=== PATIENT | female | born 1960 | race Caucasian/White ===

== ENCOUNTER → 2018-09-08 10:03 | Outpatient (CLI) | payer MEDICAID, SELFPAY ==
--- NOTE | 2018-09-08 10:05 | RAD_ITS ---
STUDY: X-RAY - CERVICAL SPINE REASON FOR EXAM: Female, 58 years old. Left pain. History of the left shoulder surgery. TECHNIQUE: 5 view(s) of the cervical spine were obtained. COMPARISON: None FINDINGS: There is anterior discectomy and fusion at C5-C6 and C6-C7 with the possibility of secured by a plate and screws through C5-C6 and C7. The hardware is in good position. There is overall normal alignment and curvature of the cervical spine with no acute fractures or dislocations. The prevertebral soft tissues are normal. All the intervertebral foramina are patent . RAD/Cerv Spine 4 or 5 Views IMPRESSION: Anterior discectomy and fusion in the lower cervical spine. No acute fractures. All the intervertebral foramina are patent Electronically Signed: Jeramie Chatterjee MD at 0:26 EDT Tel , Service support ,
--- NOTE | 2018-09-08 14:48 | NEURO ---
NCS and/or EMG Patient Report Ordering Doctor: Librado Jo DATE OF SERVICE: 09/08/18 Liz Colin is a 58-year-old female presents for electrodiagnostic testing of the left upper limb. She reports numbness and tingling in the left arm. Electrodiagnostic findings: The left median motor nerve demonstrates normal distal latency amplitude and conduction velocity. Normal left ulnar motor response. Normal left median and ulnar F wave. Normal left sided median, ulnar and radial responses. Needle EMG testing shows no evidence of denervation with normal motor unit action potentials. Electrodiagnostic impression: This is a normal electrodiagnostic study of the left upper limb. There is no electrodiagnostic evidence for peripheral neuropathy or cervical radiculopathy. If there are any further questions, please not hesitate to contact me
--- NOTE | 2018-09-08 14:51 | NEURO_ITS ---
NCS and/or EMG Patient Report Ordering Doctor: Librado Jo DATE OF SERVICE: 09/08/18 Liz Colin is a 58-year-old female presents for electrodiagnostic testing of the left upper limb. She reports numbness and tingling in the left arm. Electrodiagnostic findings: The left median motor nerve demonstrates normal di stal latency amplitude and conduction velocity. Normal left ulnar motor response. Normal left median and ulnar F wave. Normal left sided median, ulnar and radial responses. Needle EMG testing shows no evidence of denervation with normal motor unit action potentials. Electrodiagnostic impression: This is a normal electrodiagnostic study of the left upper limb. There is no electrodiagnostic evidence for peripheral neuropathy or cervical radiculopathy. If there are any further questions, please not hesitate to contact me
== END ==
PROVIDERS: Family Provider Preventive Medicine Occupational Medicine; PCP Preventive Medicine Occupational Medicine; Referring Provider Surgery; Visit Provider Surgery
DX: G56.22 Lesion of ulnar nerve, left upper limb (principal); F17.200 Nicotine dependence, unspecified, uncomplicated
CPT/HCPCS: 72050; 95886; 95910

== ENCOUNTER 2018-12-21 07:33 | Day surgery (SDC) | payer MEDICAID, SELFPAY ==
[2018-12-09 15:15] VITALS: BMI 36.8
[2018-12-21] VITALS (8 sets, daily range): BP systolic 111–139; BP diastolic 64–83; PULSE 54–68; RESP 14–18; TEMP 35.9–36.3; O2SAT 90–99; BMI 37.6
--- NOTE | 2018-12-21 09:15 | LES_PTH ---
PATIENT: YASMEEN DIAZ LOC: [facility] [place] U#:[id number] AGE/SX: 58/F ROOM: RE12/21/[address]: Dr. Librado Jo MD : 1960 BED: DIS: 12/21/2018 SPEC #: [id number] RECD: 12/21/18 14:34 STATUS: ITA CATY #: [id number] SHAUNNA: 12/21/18 09:[address]: Librado Jo DEPT: SURGICAL PATHOLOGY RECD BY: Imtiaz Chapman ENTERED: 12/21/18 14:35 SP TYPE: Lesion OTHR DR: Dr. Federico Hawthorne, DO Tissues: A - Skin of abdomen, NOS B - Skin of arm C - Skin of arm Procedures: Surgery Specimen Level III Surgery Specimen Level IV HEADER OPERATION: Excision soft tissue mass x2, lower arm/I & D, excisional debridement PRE-OP DIAGNOSIS: Localized swelling, mass and lump left upper limb; left abdominal wall cellulitis and wall mass TISSUE SUBMITTED: A - Left abdominal wall infected lesion, suture at 12 o'clock, B - Soft tissue mass left medial antecubital, C - Soft tissue mass left lateral antecubital MICROSCOPIC DIAGNOSIS A. Left abdominal wall, skin and soft tissue, excision: Epidermal inclusion cyst with associated fibrosis and mild chronic inflammation. B. Soft tissue mass of left medial antecubital region, excision: Mature adipose tissue consistent with lipoma. C. Soft tissue mass of left lateral antecubital region, excision: Mature adipose tissue consistent with lipoma. AM:delvis 12/22/18 MICROSCOPIC DESCRIPTION Slides are reviewed. GROSS DESCRIPTION A - Received in fixative is one container labeled with the patient's name and designated left abdominal infected lesion. The specimen consists of an ellipse of hall skin measuring 3 x 1 cm. Attached to this is an irregular fragment of yellow fatty tissue measuring 3.5 x 3 x 1.2 cm. A suture is present along one edge of the skin ellipse. This edge and corresponding half of the specimen is inked in black ink. The opposite half is inked in blue ink. Serial sections do not reveal mass lesions. Computer Numeric Control Setter sections are submitted in one cassette. B - Received in fixative is one container labeled with the patient's name and designated soft tissue left medial antecubital. The specimen consists of multiple irregular fragments of hall-yellow fibrofatty tissue that in aggregate measure 5 x 3.5 x 1 cm. Sections reveal homogenous yellow cut surfaces without areas of myxoid change, hemorrhage or cyst formation. Computer Numeric Control Setter sections are submitted in one cassette. C - Received in fixative is one container labeled with the patient's name and designated soft tissue mass left lateral antecubital. The specimen consists of multiple irregular fragments of hall-yellow fibrofatty tissue that in aggregate measure 8 x 4.5 x 1 cm. Sections reveal homogenous yellow cut surfaces without areas of myxoid change, hemorrhage or cyst formation. Computer Numeric Control Setter sections are submitted in one cassette. / AM:delvis 12/21/18 TC:5 CPT: 66390, 34375 x2
[2018-12-21] MEDS: Mupirocin Ointment 22gm Tube 1 APPLIC (11:46)
--- NOTE | 2018-12-21 12:01 | PCM.IMDPSTOP ---
Immediate Post-Op Note Date of Procedure: 12/21/18 Primary Surgeon/Physician: Librado Jo MD commercial energy rater: None Pre-Operative Diagnosis: 1. 6 cm recurrent soft tissue mass left antecubital area, medially. 2. 6 cm soft tissue mass left antecubital area, laterally. 3. 1.5 cm infected soft tissue mass left abdominal wall. 4. Personal history of skin cancer. 5. Smoker. Post-Operative Diagnosis: Same. Surgery/Procedure Performed:: 1. Excision 6 cm recurrent soft tissue mass left antecubital area, medially, with 4 cm layered closure. 2. Excision 6 cm soft tissue mass left antecubital area, laterally, with 4 cm layered closure. 3. Excision 1.5 cm infected soft tissue mass left abdominal wall with 6 cm layered closure. Description of Surgical Findings:: 58 year old woman presents for evaluation for TBSE. She has noted a soft tissue mass in her left antecubital area in an area of previous excision medially and has developed a soft tissue mass in her left antecubital area laterally. She denies any pain in her left elbow. She also has a lesion on her dorsal ulnar aspect mid left forearm that we have been observing. The patient has not noticed any changes in that lesion recently. After her left shoulder surgery she had some numbness afterward. NCV and EMG study done on 09/08/18 was negative. Cervical xray showed anterior discectomy and fusion of lower cervical spine. There is normal alignment and curvature and intervertebral foramina are patent. MRI and CT scans were ordered and were denied by her insurance carrier. She is also concerned about a recently infected soft tissue mass left abdominal wall that has increased in size with increasing redness and swelling. She states it has recently drained on its own. It still is red and feels sore. She denies any fever. Today the patient underwent excision 6 cm recurrent soft tissue mass left antecubital area, medially, with 4 cm layered closure and excision 6 cm soft tissue mass left antecubital area, laterally, with 4 cm layered closure and excision 1.5 cm infected soft tissue mass left abdominal wall with 6 cm layered closure. I used Moises absorbable hemostat. Reference Number - [id number]. Lot Number - [id number]. Expiration - July 27, 2023. Estimated Blood Loss: 10 ml. Specimen's removed: 1. Recurrent soft tissue mass left antecubital area, medially, to Pathology. 2. Soft tissue mass left antecubital area, laterally, to Pathology. 3. Infected soft tissue mass left abdominal wall to Pathology and Microbiology. Drains: None. Type of Anesthesia:: General - Admit VTE Documentation VTE Present on Admission: No VTE Mechan Device Prophylaxis: SCD's VTE Pharm Prophylaxis ordered?: No
--- NOTE | 2018-12-21 12:16 | DCINST_ITS ---
You will use the following diet at home:: No restrictions Discharge Activity: May not drive while taking narcotic pain medications., May Shower - in two days., - - elevate left arm. no heavy lifting left arm. May shower in (days): 2 - reapply maurice wrap left arm after showering. May resume sexual activity in: No Restrictions Weight Bearing Status: Weight bearing as tolerated Lifting Restrictions: 20 lbs. Keep extremity elevated above heart level: Left Arm Call your doctor if your incision/area has: Continuous Slow Oozing, Sudden Increased Bleeding, Increased Pain/ Swelling, Increased Redness, Foul Smelling Discharge, Swelling at the incision site Call your doctor if you observe: Fever of 101 or Higher, Coldness, Increased Pain, Shortness of breath, Chest pain, Calf discomfort, Uncontrolled pain Suture Line Care: - - after dressing removed in two days, apply antibiotic ointment to suture line daily. Remove Dressing in (days):: 2 - reapply maurice wrap left arm after showering. Cleanse incision/area with: - - may get incisions wet in the shower in two days. Allergies/Adverse Reactions: Allergies doxycycline Allergy (Severe, Verified 12/20/18 08:21) DIZZINESS AND FACE NUMBNESS dicyclomine HCl [From Bentyl] Allergy (Verified 12/20/18 08:21) Swelling FACIAL NUMBNESS, LIP SWELLING Penicillins Allergy (Verified 12/20/18 08:21) Rash adhesive Adverse Reaction (Verified 12/20/18 08:21) Rash clarithromycin [From Biaxin] Adverse Reaction (Verified 12/20/18 08:21) Nausea/Vom/Diarrhea diazepam [From Valium] Adverse Reaction (Verified 12/20/18 08:21) Other CRIES FOR WEEKS levofloxacin [From Levaquin] Adverse Reaction (Verified 12/20/18 08:21) Nausea/Vom/Diarrhea prednisone Adverse Reaction (Verified 12/20/18 08:21) Other MOOD CHANGES venlafaxine HCl [From Effexor] Adverse Reaction (Verified 12/20/18 08:21) Nausea/Vom/Diarrhea PLASTIC TAPE Adverse Reaction (Uncoded 12/09/18 15:35) Rash Medications to take at Discharge Estradiol 1 mg PO DAILY 11/21/13 Omeprazole 40 mg PO DAILY 11/21/13 Atenolol [Tenormin (beta scout)] 25 mg PO DAILY 04/20/14 Triamterene 75MG/Hctz 50MG [Maxzide] 1 tablet PO DAILY 07/26/14 Sertraline HCl [Zoloft] 50 mg PO DAILY 03/28/15 Tizanidine HCl 4 mg PO Q6H PRN 09/05/16 Albuterol Inhaler [Ventolin Hfa] 1 - 2 puff INHALATION Q4H PRN PRN 03/20/17 budesonide-formoterol HFA 80 mcg-4.5 mcg/actuation aerosol inhaler 2 puff INHALATION BID 03/16/18 atorvastatin 10 mg tablet 10 mg PO QDAY 04/15/18 umeclidinium 62.5 mcg/actuation blister powder for inhalation 1 inh INHALATION DAILY 12/09/18 Ropinirole HCl [Requip] 0.5 mg PO QHS 12/20/18 Clindamycin HCl [Cleocin HCl] 300 mg PO TID #21 cap 12/21/18 Lactobacillus Acidophilus/Fos [Acidophilus Probiotic Tablet] 1 ea PO BID #20 tab 12/21/18 Oxycodone HCl/Acetaminophen [Percocet 5-325] 1 - 2 tab PO 4X/DAY PRN PRN 7 Days #50 tab 12/21/18 The following prescriptions were given: Oxycodone HCl/Acetaminophen [Percocet 5-325] 1 - 2 tab PO 4X/DAY PRN PRN 7 Days #50 tab PRN Reason: Pain Lactobacillus Acidophilus/Fos [Acidophilus Probiotic Tablet] 1 ea PO BID #20 tab Clindamycin HCl [Cleocin HCl] 300 mg PO TID #21 cap Primary Care Physician: Federico Hawthorne DO [Primary Care Provider] - Test Results: Test results from this visit will be discussed in further detail at your follow- up appointment, if applicable. Please Follow Up With: Librado Jo MD When: one week. call [phone] for appt. Proposed Discharge Date: 12/21/18
--- NOTE | 2018-12-21 19:16 | PCM.OPRPT ---
Report of Operation Date of Procedure: 12/21/18 Pre-Operative Diagnosis: 1. 6 cm recurrent soft tissue mass left antecubital area, medially. 2. 6 cm soft tissue mass left antecubital area, laterally. 3. 1.5 cm infected soft tissue mass left abdominal wall. 4. Personal history of skin cancer. 5. Smoker. Post-Operative Diagnosis: Same. Surgery/Procedure Performed:: 1. Excision 6 cm recurrent soft tissue mass left antecubital area, medially, with 4 cm layered closure. 2. Excision 6 cm soft tissue mass left antecubital area, laterally, with 4 cm layered closure. 3. Excision 1.5 cm infected soft tissue mass left abdominal wall with 6 cm layered closure. Description of Surgical Findings:: 58 year old woman presents for evaluation for TBSE. She has noted a soft tissue mass in her left antecubital area in an area of previous excision medially and has developed a soft tissue mass in her left antecubital area laterally. She denies any pain in her left elbow. She also has a lesion on her dorsal ulnar aspect mid left forearm that we have been observing. The patient has not noticed any changes in that lesion recently. After her left shoulder surgery she had some numbness afterward. NCV and EMG study done on 09/08/18 was negative. Cervical xray showed anterior discectomy and fusion of lower cervical spine. There is normal alignment and curvature and intervertebral foramina are patent. MRI and CT scans were ordered and were denied by her insurance carrier. She is also concerned about a recently infected soft tissue mass left abdominal wall that has increased in size with increasing redness and swelling. She states it has recently drained on its own. It still is red and feels sore. She denies any fever. Patient was informed of the risks and complications of the procedure including alternatives to surgery. These were discussed with the patient personally. Patient voices understanding and wishes to proceed. Some of the risks and complications were included in a form from the [place] [employer]. Encouraged patient to stop smoking as it may have deleterious effects on wound healing. I used Moises absorbable hemostat. Reference Number - [id number]. Lot Number - [id number]. Expiration - July 27, 2023. fish frog or oyster farmer: None Type of Anesthesia:: General Specimen's removed: 1. Recurrent soft tissue mass left antecubital area, medially, to Pathology. 2. Soft tissue mass left antecubital area, laterally, to Pathology. 3. Infected soft tissue mass left abdominal wall to Pathology and Microbiology. Drains: None. Estimated Blood Loss (mL): 10 ml. Description of Procedure: Patient was taken to OR in supine position and was placed under general anesthesia. The left abdominal wall and left arm areas were prepped and draped in the usual fashion. SCD's were placed for DVT prophylaxis. Perioperative antibiotics were given intravenously. Using xylocaine with epinephrine, the lesion left abdominal wall and the soft tissue masses left arm were infiltrated. A tourniquet was placed on the left arm to be used if necessary. After waiting 5 minutes for the anesthetic to take effect, I made a horizontal elliptical incision around the infected soft tissue mass with a 2 mm margin in all directions thus making it a 1.9 cm excision and a 6 cm layered closure. Dissection was carried down into the subcutaneous tissue. Some fat necrosis was seen. No pus noted today. A suture was placed at the 12 oclock position for pathology orientation. The lesion was sent to Pathology for analysis to rule out carcinoma. Some of the tissue was also sent to Microbiology for culture. A positive culture will necessitate antibiotic therapy. Hemostasis was obtained with electrocautery. The wound was irrigated with saline. I sprayed Moises absorbable hemostat into the wound to minimize seroma formation. The wound was then closed in a layered fashion with 2-0 Vicryl interrupted sutures and 3-0 Monocryl interrupted sutures for the deep dermis and subcutaneous tissue. The skin was approximated with 4-0 Prolene simple interrupted sutures. Antibiotic ointment was applied to the suture line followed by a gauze dressing. I then made oblique incisions over the soft tissue masses left volar distal arm both medially and laterally. The incision medially was through the previous scarring. Dissection was carried into the subcutaneous tissue. Some scar tissue seen was also excised with the soft tissue mass. The mass was dissected off the underlying muscle. The mass was well encapsulated and was clinically consistent with a lipoma. I then made an oblique incision laterally over the mass. Dissection was carried into the subcutaneous tissue. The mass was dissected off the underlying muscle. The mass was well encapsulated and was clinically consistent with a lipoma. Both soft tissue masses were sent to Pathology separately for analysis to rule out carcinoma. Hemostasis obtained with electrocautery. Since the masses were not deep to the muscle, I was able to excise these soft tissue masses without using the tourniquet. The wounds were irrigated with saline. I then sprayed Moises absorbable hemostat into the wounds to minimize seroma formation. The wounds were then closed in a layered fashion with 3-0 Monocryl interrupted sutures for the deep dermis and subcutaneous tissue. The skin was approximated with 5-0 Prolene simple interrupted sutures. Both incisions were 4 cm in length. Antibiotic ointment was applied to the incisions followed by gauze and a Kerlix gauze followed by a compression KANDI wrap. Patient tolerated the procedure well and was sent to PACU in satisfactory condition. Patient will be sent home on antibiotics and pain medication. She will keep her left arm elevated during the initial postop period. Patient will followup in a week for a wound check and for discussion of the pathology report and for discussion of the Microbiology report. The sutures will be removed in two weeks. Grafts/Implants Used: None. - Complications None. - Admit VTE Documentation VTE Present on Admission: No VTE Mechan Device Prophylaxis: SCD's VTE Pharm Prophylaxis ordered?: No Code Visit Surgery Charges CPT - 63843 ICD-10 - R22.32, Z85.828, F17.200 75843 R22.32, Z85.828, F17.200 57114 R22.2, L03.311, Z85.828, F17.200 97011 R22.2, L03.311, Z85.828, F17.200
--- NOTE | 2018-12-22 14:16 | OP.PCM_ITS ---
Report of Operation Date of Procedure: 12/21/18 Pre-Operative Diagnosis: 1. 6 cm recurrent soft tissue mass left antecubital area, medially. 2. 6 cm soft tissue mass left antecubital area, laterally. 3. 1.5 cm infected soft tissue mass left abdominal wall. 4. Personal history of skin cancer. 5. Smoker. Post-Operative Diagnosis: Same. Surgery/Procedure Performed:: 1. Excision 6 cm recurrent soft tissue mass left antecubital area, medially, with 4 cm layered closure. 2. Excision 6 cm soft tissue mass left antecubital area, laterally, with 4 cm layered closure. 3. Excision 1.5 cm infected soft tissue mass left abdominal wall with 6 cm layered closure. Description of Surgical Findings:: 58 year old woman presents for evaluation for TBSE. She has noted a soft tissue mass in her left antecubital area in an area of previous excision medially and has developed a soft tissue mass in her left antecubital area laterally. She denies any pain in her left elbow. She also has a lesion on her dorsal ulnar aspect mid left forearm that we have been observing. The patient has not noticed any changes in that lesion recently. After her left shoulder surgery she had some numbness afterward. NCV and EMG study done on 09/08/18 was negative. Cervical xray showed anterior discectomy and fusion of lower cervical spine. There is normal alignment and curvature and intervertebral foramina are patent. MRI and CT scans were ordered and were denied by her insurance carrier. She is also concerned about a recently infected soft tissue mass left abdominal wall that has increased in size with increasing redness and swelling. She states it has recently drained on its own. It still is red and feels sore. She denies any fever. Patient was informed of the risks and complications of the procedure including alternatives to surgery. These were discussed with the patient personally. Patient voices understanding and wishes to proceed. Some of the risks and complications were included in a form from the [employer]. Encouraged patient to stop smoking as it may have deleterious effects on wound healing. I used Moises absorbable hemostat. Reference Number - [id number]. Lot Number - [id number]. Expiration - July 27, 2023. osd clerk: None Type of Anesthesia:: General Specimen's removed: 1. Recurrent soft tissue mass left antecubital area, medially, to Pathology. 2. Soft tissue mass left antecubital area, laterally, to Pathology. 3. Infected soft tissue mass left abdominal wall to Pathology and Microbiology. Drains: None. Estimated Blood Loss (mL): 10 ml. Description of Procedure: Patient was taken to OR in supine position and was placed under general anesthesia. The left abdominal wall and left arm areas were prepped and draped in the usual fashion. SCD's were placed for DVT prophylaxis. Perioperative antibiotics were given intravenously. Using xylocaine with epinephrine, the lesion left abdominal wall and the soft tissue masses left arm were infiltrated. A tourniquet was placed on the left arm to be used if necessary. After waiting 5 minutes for the anesthetic to take effect, I made a horizontal elliptical incision around the infected soft tissue mass with a 2 mm margin in all directions thus making it a 1.9 cm excision and a 6 cm layered closure. Dissection was carried down into the subcutaneous tissue. Some fat necrosis was seen. No pus noted today. A suture was placed at the 12 oclock position for pathology orientation. The lesion was sent to Pathology for analysis to rule out carcinoma. Some of the tissue was also sent to Microbiology for culture. A positive culture will necessitate antibiotic therapy. Hemostasis was obtained with electrocautery. The wound was irrigated with saline. I sprayed Moises absorbable hemostat into the wound to minimize seroma formation. The wound was then closed in a layered fashion with 2-0 Vicryl interrupted sutures and 3-0 Monocryl interrupted sutures for the deep dermis and subcutaneous tissue. The skin was approximated with 4-0 Prolene simple interrupted sutures. Antibiotic ointment was applied to the suture line followed by a gauze dressing. I then made oblique incisions over the soft tissue masses left volar distal arm both medially and laterally. The incision medially was through the previous scarring. Dissection was carried into the subcutaneous tissue. Some scar tissue seen was also excised with the soft tissue mass. The mass was dissected off the underlying muscle. The mass was well encapsulated and was clinically consistent with a lipoma. I then made an oblique incision laterally over the mass. Dissection was carried into the subcutaneous tissue. The mass was dissected off the underlying muscle. The mass was well encapsulated and was clinically consistent with a lipoma. Both soft tissue masses were sent to Pathology separately for analysis to rule out carcinoma. Hemostasis obtained with electrocautery. Since the masses were not deep to the muscle, I was able to excise these soft tissue masses without using the tourniquet. The wounds were irrigated with saline. I then sprayed Moises absorbable hemostat into the wounds to minimize seroma formation. The wounds were then closed in a layered fashion with 3-0 Monocryl interrupted sutures for the deep dermis and subcutaneous tissue. The skin was approximated with 5-0 Prolene simple interrupted sutures. Both incisions were 4 cm in length. Antibiotic ointment was applied to the incisions followed by gauze and a Kerlix gauze followed by a compression KANDI wrap. Patient tolerated the procedure well and was sent to PACU in satisfactory condition. Patient will be sent home on antibiotics and pain medication. She will keep her left arm elevated during the initial postop period. Patient will followup in a week for a wound check and for discussion of the pathology report and for discussion of the Microbiology report. The sutures will be removed in two weeks. Grafts/Implants Used: None. - Complications None. - Admit VTE Documentation VTE Present on Admission: No VTE Mechan Device Prophylaxis: SCD's VTE Pharm Prophylaxis ordered?: No Code Visit Surgery Charges CPT - 64025 ICD-10 - R22.32, Z85.828, F17.200 42841 R22.32, Z85.828, F17.200 45329 R22.2, L03.311, Z85.828, F17.200 42800 R22.2, L03.311, Z85.828, F17.200
--- OUTSIDE RECORDS SUMMARY | 2019-02-22 07:45 | XMS RPT_ITS ---
:1960 Author Organization OHIP Care Team Providers Name Role Phone LACHELLE SHAH MD Attending Unavailable RICCI HAWTHORNE Primary Care Unavailable GENTRY SANTANA Attending Unavailable RICCI HAWTHORNE Primary Care Unavailable JODIE CHILDERS MD Attending Unavailable RICCI HAWTHORNE Primary Care Unavailable Librado Jo Attending Unavailable Librado Jo Referring Unavailable Ricci Hawthorne Primary Care Unavailable Librado Jo Attending Unavailable Ricci Hawthorne Referring Unavailable Librado Jo Attending Unavailable Ricci Hawthorne Referring Unavailable Ricci Hawthorne Primary Care Unavailable Librado Jo Attending Unavailable Ricci Hawthorne Primary Care Unavailable Librado Jo Referring Unavailable Librado Jo Attending Unavailable Librado Jo Referring Unavailable Ricci Hawthorne Primary Care Unavailable PROBLEMS PROBLEMS DATE TYPE CONDITION / CODE ATTENDING STATUS SOURCE 12/21/2018 Unknown G89.18 - Other acute Sandro Librado Active Latanya postprocedural pain [facility] / G89.18(ICD-10) Hospital Repository PROCEDURES PROCEDURES No Procedure Records FoundRESULTS RESULTS DISCHARGE INSTRUCTION Observed: 12/21/2018 Status: F Source: [place] 12:16 PM [facility] REPOSITORY [facility] Medical Records Department [address] [place] [address] Instructions for Home/Discharge Instructions 12/21/18 1212 MR#: [id number] Acct: [id number] Name: LIZ COLIN Rep #: [id number] : 1960 58 From: Librado Jo MD PCP: Ricci Hawthorne DO [place] [facility] [place] will use the following diet at home:: No restrictions Discharge Activity: May not drive while taking narcotic pain medications., May Shower - in two days., - - elevate left arm. no heavy lifting left arm. May shower in (days): 2 - reapply maurice wrap left arm after showering. May resume sexual activity in: No Restrictions Weight Bearing Status: Weight bearing as tolerated Lifting Restrictions: 20 lbs. Keep extremity elevated above heart level: Left Arm Call your doctor if your incision/area has: Continuous Slow Oozing, Sudden Increased Bleeding, Increased Pain/ Swelling, Increased Redness, Foul Smelling Discharge, Swelling at the incision site Call your doctor if you observe: Fever of 101 or Higher, Coldness, Increased Pain, Shortness of breath, Chest pain, Calf discomfort, Uncontrolled pain Suture Line Care: - - after dressing removed in two days, apply antibiotic ointment to suture line daily. Remove Dressing in (days):: 2 - reapply maurice wrap left arm after showering. Cleanse incision/area with: - - may get incisions wet in the shower in two days. Allergies/Adverse Reactions: Allergies doxycycline Allergy (Severe, Verified 12/20/18 08:21) DIZZINESS AND FACE NUMBNESS dicyclomine HCl [From Bentyl] Allergy (Verified 12/20/18 08:21) Swelling FACIAL NUMBNESS, LIP SWELLING Penicillins Allergy (Verified 12/20/18 08:21) Rash adhesive Adverse Reaction (Verified 12/20/18 08:21) Rash clarithromycin [From Biaxin] Adverse Reaction (Verified 12/20/18 08:21) Nausea/Vom/Diarrhea diazepam [From Valium] Adverse Reaction (Verified 12/20/18 08:21) Other CRIES FOR WEEKS levofloxacin [From Levaquin] Adverse Reaction (Verified 12/20/18 08:21) Nausea/Vom/Diarrhea prednisone Adverse Reaction (Verified 12/20/18 08:21) Other MOOD CHANGES venlafaxine HCl [From Effexor] Adverse Reaction (Verified 12/20/18 08:21) Nausea/Vom/Diarrhea PLASTIC TAPE Adverse Reaction (Uncoded 12/09/18 15:35) Rash Medications to take at Discharge Estradiol 1 mg PO DAILY 11/21/13 Omeprazole 40 mg PO DAILY 11/21/13 Atenolol [Tenormin (beta scout)] 25 mg PO DAILY 04/20/14 Triamterene 75MG/Hctz 50MG [Maxzide] 1 tablet PO DAILY 07/26/14 Sertraline HCl [Zoloft] 50 mg PO DAILY 03/28/15 Tizanidine HCl 4 mg PO Q6H PRN 09/05/16 Albuterol Inhaler [Ventolin Hfa] 1 - 2 puff INHALATION Q4H PRN PRN 03/20/17 budesonide-formoterol HFA 80 mcg-4.5 mcg/actuation aerosol inhaler 2 puff INHALATION BID 03/16/18 atorvastatin 10 mg tablet 10 mg PO QDAY 04/15/18 umeclidinium 62.5 mcg/actuation blister powder for inhalation 1 inh INHALATION DAILY 12/09/18 Ropinirole HCl [Requip] 0.5 mg PO QHS 12/20/18 Clindamycin HCl [Cleocin HCl] 300 mg PO TID #21 cap 12/21/18 Lactobacillus Acidophilus/Fos [Acidophilus Probiotic Tablet] 1 ea PO BID #20 tab 12/21/18 Oxycodone HCl/Acetaminophen [Percocet 5-325] 1 - 2 tab PO 4X/DAY PRN PRN 7 Days #50 tab 12/21/18 The following prescriptions were given: Oxycodone HCl/Acetaminophen [Percocet 5-325] 1 - 2 tab PO 4X/DAY PRN PRN 7 Days #50 tab PRN Reason: Pain Lactobacillus Acidophilus/Fos [Acidophilus Probiotic Tablet] 1 ea PO BID #20 tab Clindamycin HCl [Cleocin HCl] 300 mg PO TID #21 cap Primary Care Physician: Ricci Hawthorne DO [Primary Care Provider] - Test Results: Test results from this visit will be discussed in further detail at your follow-up appointment, if applicable. Please Follow Up With: Librado Jo MD When: one week. call [phone] for appt. Proposed Discharge Date: 12/21/18 12/21/18 1216 <Electronically signed by Librado Jo MD> Date Librado Jo MD CC: Ricci Hawthorne DO Signed Observed: 12/21/2018 Status: P Source: [place] CULTURE, DEEP WOUND 12:10 PM [facility] REPOSITORY Order Date: 07/01/17 Comments: 1. left abdominal wall infected lesion Gram Stain Gram Stain No organisms seen Wound Culture No growth aerobically. Cult, Anaerobic No growth in 48 hours. Performed By: #### [id number] #### [facility] [place], [address] LESION (CHOOSE SITE) Observed: 12/21/2018 Status: F Source: [place] 9:15 AM [facility] REPOSITORY Patient: LIZ COLIN : 1960 (58/F) Acct Num: [id number] Phys: Librado Jo MD Unit Num: [id number] Loc: [facility] [place] Specimen: [id number] Received: 12/21/18 - 1239 Spec Type: Lesion TISSUES 1 TISSUES: A. Skin of abdomen, NOS B. Skin of arm C. Skin of arm GROSS DESCRIPTION A - Received in fixative is one container labeled with the patient's name and designated left abdominal infected lesion. The specimen consists of an ellipse of hall skin measuring 3 x 1 cm. Attached to this is an irregular fragment of yellow fatty tissue measuring 3.5 x 3 x 1.2 cm. A suture is present along one edge of the skin ellipse. This edge and corresponding half of the specimen is inked in black ink. The opposite half is inked in blue ink. Serial sections do not reveal mass lesions. Policy Writer Sales sections are submitted in one cassette. B - Received in fixative is one container labeled with the patient's name and designated soft tissue left medial antecubital. The specimen consists of multiple irregular fragments of hall-yellow fibrofatty tissue that in aggregate measure 5 x 3.5 x 1 cm. Sections reveal homogenous yellow cut surfaces without areas of myxoid change, hemorrhage or cyst formation. Policy Writer Sales sections are submitted in one cassette. C - Received in fixative is one container labeled with the patient's name and designated soft tissue mass left lateral antecubital. The specimen consists of multiple irregular fragments of hall-yellow fibrofatty tissue that in aggregate measure 8 x 4.5 x 1 cm. Sections reveal homogenous yellow cut surfaces without areas of myxoid change, hemorrhage or cyst formation. Policy Writer Sales sections are submitted in one cassette. / AM:delvis 12/21/18 TC:5 CPT: 54837, 91525 x2 HEADER OPERATION: Excision soft tissue mass x2, lower arm/I AND D, excisional debridement PRE-OP DIAGNOSIS: Localized swelling, mass and lump left upper limb; left abdominal wall cellulitis and wall mass TISSUE SUBMITTED: A - Left abdominal wall infected lesion, suture at 12 o'clock , B - Soft tissue mass left medial antecubital, C - Soft tissue mass left lateral antecubital MICROSCOPIC DESCRIPTION Slides are reviewed. MICROSCOPIC DIAGNOSIS A. Left abdominal wall, skin and soft tissue, excision: Epidermal inclusion cyst with associated fibrosis and mild chronic inflammation. B. Soft tissue mass of left medial antecubital region, excision: Mature adipose tissue consistent with lipoma. C. Soft tissue mass of left lateral antecubital region, excision: Mature adipose tissue consistent with lipoma. AM:delvis 12/22/18 Signed Freddy Zamudio DO 12/22/18 <signature on file> Performed By: #### PLES #### [facility] [address] [place] [address], [id number] PLASTIC SURGERY Observed: 12/14/2018 Status: F Source: [place] VISIT REPORT 3:44 PM [facility] REPOSITORY [facility] [address] [place] [address] OFFICE VISIT Date of Service: 12/09/18 MR#: [id number] Acct: [id number] Name: LIZ COLIN Rep #: [id number] : 1960 Provider: Librado oJ MD Age/Sex: 58/F Location: [facility] Status: Signed Intake Vital Signs12/09/18 Height 5 ft 5 in 12/09/18 Weight: 221 lb 4 oz Intake Visit Reasons: evaluation for TBSE Ribbon Blockmaker Required: No Accompanied by: Is patient in pain?: Yes (LEFT ARM PAIN ACHING AND AT NIGHT ITS BAD ENOUGH TO WAKE HER) Pain scale (1-10): 3 Allergies doxycycline Allergy (Severe, Verified 12/13/18 14:20) DIZZINESS AND FACE NUMBNESS dicyclomine HCl [From Bentyl] Allergy (Verified 12/09/18 15:35) Swelling Penicillins Allergy (Verified 12/09/18 15:35) Rash adhesive Adverse Reaction (Verified 12/09/18 15:35) Rash clarithromycin [From Biaxin] Adverse Reaction (Verified 12/09/18 15:35) Nausea/Vom/Diarrhea diazepam [From Valium] Adverse Reaction (Verified 12/09/18 15:35) Other levofloxacin [From Levaquin] Adverse Reaction (Verified 12/09/18 15:35) Nausea/Vom/Diarrhea prednisone Adverse Reaction (Verified 12/09/18 15:35) Other venlafaxine HCl [From Effexor] Adverse Reaction (Verified 12/09/18 15:35) Nausea/Vom/Diarrhea PLASTIC TAPE Adverse Reaction (Uncoded 12/09/18 15:35) Rash Medications Estradiol 1 mg PO DAILY 11/21/13 [History Confirmed 03/20/17] Hyoscyamine Sulfate 0.375 mg SL PRN PRN 11/21/13 [History Confirmed 03/20/17] Lorazepam [Ativan] 1 tab PO PRN PRN 11/21/13 [History Confirmed 03/20/17] Omeprazole 40 mg PO DAILY 11/21/13 [History Confirmed 03/20/17] Atenolol [Tenormin (beta scout)] 25 mg PO DAILY 04/20/14 [History Confirmed 03/20/17] Triamterene 75MG/Hctz 50MG [Maxzide] 1 tab PO DAILY 07/26/14 [History Confirmed 03/20/17] Sertraline HCl [Zoloft] 50 mg PO DAILY 03/28/15 [History Confirmed 03/20/17] Tizanidine HCl 4 mg PO Q6H PRN 09/05/16 [History Confirmed 03/20/17] Albuterol Inhaler [Ventolin Hfa] 1 - 2 puff INHALATION Q4H PRN PRN 03/20/17 [History Confirmed 03/20/17] budesonide-formoterol HFA 80 mcg-4.5 mcg/actuation aerosol inhaler 2 puff INHALATION BID 03/16/18 [History Confirmed 03/16/18] esomeprazole magnesium 40 mg capsule,delayed release 40 mg PO QDAY 03/16/18 [History Confirmed 03/16/18] fluticasone 50 mcg/actuation nasal spray,suspension 1 spray INTRANASAL QDAY 03/16/18 [History Confirmed 03/16/18] loratadine-pseudoephedrine ER 10 mg-240 mg tablet,extended poaxtps23yl 1 tab PO QDAY 03/16/18 [History Confirmed 03/16/18] atorvastatin 10 mg tablet 10 mg PO QDAY 04/15/18 [History Confirmed 04/15/18] doxycycline hyclate 100 mg capsule 100 mg PO BID #30 cap 12/09/18 [Rx Confirmed 12/09/18] umeclidinium 62.5 mcg/actuation blister powder for inhalation 1 inh INHALATION DAILY 12/09/18 [History Confirmed 12/09/18] Is last menstrual period known: No Post menopausal: Yes Patient : No PFSH Medical History Arthritis (Acute) Back pain (Acute) Carpal tunnel syndrome of left wrist (Acute) Carpal tunnel syndrome of right wrist (Acute) DDD (degenerative disc disease) (Acute) De Quervain's disease (radial styloid tenosynovitis) (Acute) Depression (emotion) (Acute) Fibromyalgia (Acute) Frequent headaches (Acute) GERD (gastroesophageal reflux disease) (Acute) Ganglion cyst of dorsum of right wrist (Acute) History of hysterectomy (Acute) History of lipoma (Acute) Hyperlipidemia (Acute) Lipoma of arm (Acute) Lipoma of forearm (Acute) Neck pain (Acute) Squamous cell carcinoma (Acute) Tenosynovitis (Acute) Verrucous keratosis (Acute) Verrucous keratosis (Acute) Hypertension (Chronic) Surgical History FCR (flexor carpi radialis) tenosynovitis (Acute) H/O excision of ganglion cyst (Acute) History of arthroplasty of right ankle (Acute) History of bunionectomy of both great toes (Acute) History of carpal tunnel release of both wrists (Acute) History of excision of lesion (Acute) History of neck surgery (Acute) History of shoulder surgery (Acute) History of squamous cell carcinoma excision (Acute) History of thymectomy (Acute) History of total left knee replacement (Acute) Hx of excision of mass (Acute) Family History Mother Alcoholism Arthritis Hypertension Aunt Arthritis Family history of anesthetic complications History of blood clots Depression (emotion) Cancer Cervical cancer Grandmother Arthritis Depression (emotion) Hypertension CVA (cerebral vascular accident) Social History Smoking Status: Current every day smoker second hand exposure: No alcohol intake: never substance use type: does not use seatbelt use: always additional social history: DOES NOT USE ASPIRIN DOES NOT USE IBUPROFEN CAFFEINE USE: 5+ PER DAY SUN EXPOSURE: OCCASIONALLY HPI evaluation for TBSE: Details: HISTORY OF PRESENT ILLNESS 58 year old woman presents for evaluation for TBSE. She has noted a soft tissue mass in her left antecubital area in an area of previous excision medially and has developed a soft tissue mass in her left antecubital area laterally. She denies any pain in her left elbow. She also has a lesion on her dorsal ulnar aspect mid left forearm that we have been observing. The patient has not noticed any changes in that lesion recently. After her left shoulder surgery she had some numbness afterward. NCV and EMG study done on 09/08/18 was negative. Cervical xray showed anterior discectomy and fusion of lower cervical spine. There is normal alignment and curvature and intervertebral foramina are patent. MRI and CT scans were ordered and were denied by her insurance carrier. She is also concerned about a recently infected soft tissue mass left abdominal wall that has increased in size with increasing redness and swelling. She states it has recently drained on its own. It still is red and feels sore. She denies any fever. She presents at this time for further evaluation and treatment. REVIEW OF SYSTEMS General - Denies fever, fatigue, and weight loss. Eyes - Denies cataracts and glaucoma. ENT - Denies nasal congestion and sore throat. Endocrine - Denies excessive thirst and urination. Skin - Has recurrent soft tissue mass left antecubital area medially and a soft tissue mass left antecubital area laterally. Has stable lesion dorsal ulnar aspect mid left forearm consistent with a benign keratosis. Has an infected soft tissue mass left abdominal wall with recent drainage. Has personal history of skin cancer. Musculoskeletal - Denies joint pain, joint stiffness, weakness of muscles and joints, back pain, and arthritis. Neuro - Denies headaches. Cardiovascular - Denies chest pain, fatigue, and shortness of breath with exertion. Psych - Denies anxiety and depression. Respiratory - Denies chronic cough and shortness of breath. Gastrointestinal - Denies nausea, vomiting, diarrhea, and constipation. Hematologic - Denies abnormal bruising and bleeding. Genitourinary - Denies hematuria and urinary frequency. PHYSICAL EXAM General - Alert and Oriented. HEENT - PERRL. EOMI. Throat is clear. No suspicious lesions noted. Neck - Supple and nontender. No cervical adenopathy. No suspicious lesions noted. Lungs - Clear to auscultation. Heart - Regular rate and rhythm. Abdomen - Soft and nondistended. On the left abdominal wall is a soft tissue mass with surrounding redness. Some tenderness to palpation. No fluctuance. No purulent drainage. Measures 1.5 cm. Extremities - FROM. No axillary adenopathy. Radial pulses are palpable. On the left arm in the antecubital area medially is a soft tissue mass that measures 6 cm. It is mobile. No ulceration. No evidence of infection. No sensory deficits in the area of the mass. Negative Tinel's sign at cubital tunnel left elbow. On the left arm in the antecubital area laterally is a soft tissue mass that measures 6 cm. It is mobile. No ulceration. No evidence of infection. No sensory deficits in the area of the mass. On the dorsal ulnar aspect mid left forearm is a lesion that measures 6 mm. Has regular borders. Has uniform coloration. Slightly raised in configuration. No ulceration. Lesion is nontender. Looks clinically consistent with a benign keratosis. Fingers are warm with good capillary refill. Neuro - CN II-XII grossly intact. Psych - Normal mood and affect. ASSESSMENT 1. 6 cm recurrent soft tissue mass left antecubital area, medially. 2. 6 cm soft tissue mass left antecubital area, laterally. 3. 1.5 cm infected soft tissue mass left abdominal wall. 4. 6 mm benign keratosis dorsal ulnar aspect mid left forearm. 5. Personal history of skin cancer. 6. Smoker. PLAN Will observe the benign keratosis dorsal ulnar aspect mid left forearm at this time. If it changes in the future, will need excision and send it to Pathology for analysis to rule out carcinoma. If carcinoma is present, then further excision will be done with skin graft or skin flap reconstruction. She has large soft tissue masses left antecubital area, medially and laterally. After her left shoulder surgery she had some numbness afterward. NCV and EMG study done on 09/08/18 was negative. Cervical xray showed anterior discectomy and fusion of lower cervical spine. There is normal alignment and curvature and intervertebral foramina are patent. MRI and CT scans were ordered and were denied by her insurance carrier. Will proceed with the surgery to excise these soft tissue masses in her left antecubital area, medially and laterally. Surgery will be done under general anesthesia and tourniquet control. Will send these soft tissue masses to Pathology for analysis to rule out carcinoma. Depending on the size of the defect, a drain may be necessary postop. Also will start antibiotics with Doxycycline to try and calm down the infected soft tissue mass left abdominal wall. If the swelling and redness subside, can proceed with direct excision of the soft tissue mass with primary closure. If infection is still present, can proceed with incision and drainage and excisional debridement. Would leave the wound open and begin postop wound care with the VAC or with daily Silver dressing changes. Would send the tissue to Pathology for analysis to rule out carcinoma and to Microbiology for culture. A positive culture may necessitate antibiotic modification. After the infection is under control, can proceed with delayed secondary wound closure. Patient was informed of the risks and complications of the procedure including alternatives to surgery. These were discussed with the patient personally. Patient voices understanding and wishes to proceed. Some of the risks and complications were included in a form from the [employer]. Encouraged the patient to stop smoking as it may have deleterious effects on wound healing. Assessment AND Plan Problems 1. Localized swelling, mass and lump, left upper limb R22.32 2. Abdominal wall mass R22.2 3. Cellulitis of left abdominal wall L03.311 4. Neoplasm of unspecified behavior of bone, soft tissue, and skin D49.2 5. Personal history of skin cancer Z85.828 6. Smoker F17.200 Medications New: Coding Level of Care Code Off vis,est,level 4 Diagnoses Localized swelling, mass and lump, left upper limb R22.32 Abdominal wall mass R22.2 Cellulitis of left abdominal wall L03.311 Neoplasm of unspecified behavior of bone, soft tissue, and skin D49.2 Personal history of skin cancer Z85.828 Smoker F17.200 12/14/18 1544 <Electronically signed by Librado Jo MD> Date Librado oJ MD Cosigner Signature: Date (if applicable) CC: Ricci Hawthorne DO NCS AND/OR EMG Observed: 09/08/2018 Status: F Source: [place] PATIENT 3:21 PM [facility] REPOSITORY [facility] Pulmonary Services/Neurology [address] [place] [id number] MR#: [id number] Acct: [id number] Name: LIZ COLIN Rep #: [id number] : 1960 58 From: Iwona Greer MD Referring Dr: Librado Jo MD Status: REG CLI Ordering Dr: Date: Location: N Sex: F C NCS and/or EMG Patient Report Ordering Doctor: Librado Jo DATE OF SERVICE: 09/08/18 Liz Colin is a 58-year-old female presents for electrodiagnostic testing of the left upper limb. She reports numbness and tingling in the left arm. Electrodiagnostic findings: The left median motor nerve demonstrates normal distal latency amplitude and conduction velocity. Normal left ulnar motor response. Normal left median and ulnar F wave. Normal left sided median, ulnar and radial responses. Needle EMG testing shows no evidence of denervation with normal motor unit action potentials. Electrodiagnostic impression: This is a normal electrodiagnostic study of the left upper limb. There is no electrodiagnostic evidence for peripheral neuropathy or cervical radiculopathy. If there are any further questions, please not hesitate to contact id 09/08/18 1521 <Electronically signed by Iwona Greer MD> Date Iwona Greer MD CC: Iwona Greer; Librado Jo MD; Ricci Hawthorne DO Date Dictated: 09/08/18 144 Date Transcribed: 09/08/181447 Assistant Finance Manager: AA Signed CERV SPINE 4 OR 5 Observed: 09/08/2018 Status: F Source: [place] VIEWS 10:05 AM [facility] REPOSITORY [facility] Imaging Services [address] [place] [id number] Cerv Spine 4 or 5 Views MR#: [id number] Acct: [id number] Name: LIZ COLIN Rep #: [id number] : 1960 F 58 From: Jeramie Chatterjee MD PCP: Ricci Hawthorne DO Status: REG CLI Study: Cerv Spine 4 or 5 Views Date of Exam: 09/08/18 Exam# [id number] Ordering Dr: Librado Jo MD STUDY: X-RAY - CERVICAL SPINE REASON FOR EXAM: Female, 58 years old. Left pain. History of the left shoulder surgery. TECHNIQUE: 5 view(s) of the cervical spine were obtained. COMPARISON: None FINDINGS: There is anterior discectomy and fusion at C5-C6 and C6-C7 with the possibility of secured by a plate and screws through C5-C6 and C7. The hardware is in good position. There is overall normal alignment and curvature of the cervical spine with no acute fractures or dislocations. The prevertebral soft tissues are normal. All the intervertebral foramina are patent . RAD/Cerv Spine 4 or 5 Views IMPRESSION: Anterior discectomy and fusion in the lower cervical spine. No acute fractures. All the intervertebral foramina are patent Electronically Signed: Jeramie Chatterjee MD at 0:26 EDT Tel , Service support , CC: Librado Jo MD; Ricci Hawthorne DO Assistant Finance Manager: Signed XR CHEST 2 VIEWS Observed: 06/15/2018 Status: F Source: [facility] 11:29 PM [facility] REPOSITORY ORIGINAL XR CHEST 2 VIEWS CLINICAL STATEMENT: sob COMPARISON: CT angiogram 02/17/2012 FINDINGS: The cardiomediastinal contours are normal. There is no consolidation, vascular congestion, pleural effusion, or pneumothorax. Degenerative changes seen in the spine. There is a fusion plate in the cervical region. Sternotomy wires noted.. A calcified granuloma seen in the RIGHT lower lung. IMPRESSION: No acute radiographic findings. I have personally reviewed the images of this examination and agree with the resident's findings and interpretation. Interpreted By: Michael Cruz MD Preliminary Report By: Jia Gao MD Electronically Signed By: Michael Cruz MD Dictated Date: 06/15/2018 11:32:18 PM Prelim Date: 06/15/2018 11:33:25 PM Sign Date: 06/15/2018 11:50:33 PM PLASTIC SURGERY Observed: 05/26/2018 Status: F Source: [place] VISIT REPORT 10:55 PM [facility] REPOSITORY [facility] [address] [place] [address] OFFICE VISIT Date of Service: 04/15/18 MR#: [id number] Acct: [id number] Name: LIZ COLIN Rep #: [id number] : 1960 Provider: Librado Jo MD Age/Sex: 57/F Location: [facility] [facility] Status: Signed Intake Vital Signs04/15/18 Height 5 ft 5 in 04/15/18 Weight: 222 lb 4 oz Intake Visit Reasons: evaluation for TBSE Ribbon Blockmaker Required: No Accompanied by: Is patient in pain?: Yes (left arm aching and numb down into the fingers) Allergies dicyclomine HCl [From Bentyl] Allergy (Verified 04/15/18 16:39) Swelling Penicillins Allergy (Verified 04/15/18 16:39) Rash adhesive Adverse Reaction (Verified 04/15/18 16:39) Rash clarithromycin [From Biaxin] Adverse Reaction (Verified 04/15/18 16:39) Nausea/Vom/Diarrhea diazepam [From Valium] Adverse Reaction (Verified 04/15/18 16:39) Other levofloxacin [From Levaquin] Adverse Reaction (Verified 04/15/18 16:39) Nausea/Vom/Diarrhea prednisone Adverse Reaction (Verified 04/15/18 16:39) Other venlafaxine HCl [From Effexor] Adverse Reaction (Verified 04/15/18 16:39) Nausea/Vom/Diarrhea PLASTIC TAPE Adverse Reaction (Uncoded 04/15/18 16:39) Rash Medications Estradiol 1 mg PO DAILY 11/21/13 [History Confirmed 03/20/17] Hyoscyamine Sulfate 0.375 mg SL PRN PRN 11/21/13 [History Confirmed 03/20/17] Lorazepam [Ativan] 1 tab PO PRN PRN 11/21/13 [History Confirmed 03/20/17] Omeprazole 40 mg PO DAILY 11/21/13 [History Confirmed 03/20/17] Atenolol [Tenormin (beta scout)] 25 mg PO DAILY 04/20/14 [History Confirmed 03/20/17] Triamterene 75MG/Hctz 50MG [Maxzide] 1 tab PO DAILY 07/26/14 [History Confirmed 03/20/17] Sertraline HCl [Zoloft] 50 mg PO DAILY 03/28/15 [History Confirmed 03/20/17] Tizanidine HCl 4 mg PO Q6H PRN 09/05/16 [History Confirmed 03/20/17] Albuterol Inhaler [Ventolin Hfa] 1 - 2 puff INHALATION Q4H PRN PRN 03/20/17 [History Confirmed 03/20/17] budesonide-formoterol HFA 80 mcg-4.5 mcg/actuation aerosol inhaler 2 puff INHALATION BID 03/16/18 [History Confirmed 03/16/18] esomeprazole magnesium 40 mg capsule,delayed release 40 mg PO QDAY 03/16/18 [History Confirmed 03/16/18] fluticasone 50 mcg/actuation nasal spray,suspension 1 spray INTRANASAL QDAY 03/16/18 [History Confirmed 03/16/18] loratadine-pseudoephedrine ER 10 mg-240 mg tablet,extended [id number] 1 tab PO QDAY 03/16/18 [History Confirmed 03/16/18] atorvastatin 10 mg tablet 10 mg PO QDAY 04/15/18 [History Confirmed 04/15/18] Is last menstrual period known: No Post menopausal: Yes Patient : No PFSH Medical History Arthritis (Acute) Back pain (Acute) Carpal tunnel syndrome of left wrist (Acute) Carpal tunnel syndrome of right wrist (Acute) DDD (degenerative disc disease) (Acute) De Quervain's disease (radial styloid tenosynovitis) (Acute) Depression (emotion) (Acute) Fibromyalgia (Acute) Frequent headaches (Acute) GERD (gastroesophageal reflux disease) (Acute) Ganglion cyst of dorsum of right wrist (Acute) History of lipoma (Acute) Hyperlipidemia (Acute) Lipoma of arm (Acute) Lipoma of forearm (Acute) Neck pain (Acute) Squamous cell carcinoma (Acute) Tenosynovitis (Acute) Verrucous keratosis (Acute) Verrucous keratosis (Acute) Hypertension (Chronic) Surgical History FCR (flexor carpi radialis) tenosynovitis (Acute) H/O excision of ganglion cyst (Acute) History of arthroplasty of right ankle (Acute) History of bunionectomy of both great toes (Acute) History of carpal tunnel release of both wrists (Acute) History of excision of lesion (Acute) History of hysterectomy (Acute) History of neck surgery (Acute) History of shoulder surgery (Acute) History of squamous cell carcinoma excision (Acute) History of thymectomy (Acute) History of total left knee replacement (Acute) Hx of excision of mass (Acute) Family History Mother Alcoholism Arthritis Hypertension Aunt Arthritis Family history of anesthetic complications History of blood clots Depression (emotion) Cancer Cervical cancer Grandmother Arthritis Depression (emotion) Hypertension CVA (cerebral vascular accident) Social History Smoking Status: Current every day smoker second hand exposure: No alcohol intake: never substance use type: does not use seatbelt use: always additional social history: DOES NOT USE ASPIRIN DOES NOT USE IBUPROFEN CAFFEINE USE: 5+ PER DAY SUN EXPOSURE: OCCASIONALLY HPI evaluation for TBSE: Details: HISTORY OF PRESENT ILLNESS 57 year old woman presents for evaluation for TBSE. She has noted a soft tissue mass in her left antecubital area in an area of previous excision. She has had recent left shoulder surgery and she states she had some numbness afterward. At the present time, she has some numbness in her left small finger and left ring finger. She denies any pain in her left elbow. She also has concerns about a lesion that is erythematous on her dorsal ulnar aspect mid left forearm. The lesion has increased in size over the last several months and has uniform coloration and has uniform borders. She presents at this time for further evaluation and treatment. REVIEW OF SYSTEMS General - Denies fever, fatigue, and weight loss. Eyes - Denies cataracts and glaucoma. ENT - Denies nasal congestion and sore throat. Endocrine - Denies excessive thirst and urination. Skin - Has recurrent soft tissue mass left antecubital area. Has enlarging lesion dorsal ulnar aspect mid left forearm. Has personal history of skin cancer. Musculoskeletal - Denies joint pain, joint stiffness, weakness of muscles and joints, back pain, and arthritis. Neuro - Denies headaches. Cardiovascular - Denies chest pain, fatigue, and shortness of breath with exertion. Psych - Denies anxiety and depression. Respiratory - Denies chronic cough and shortness of breath. Gastrointestinal - Denies nausea, vomiting, diarrhea, and constipation. Hematologic - Denies abnormal bruising and bleeding. Genitourinary - Denies hematuria and urinary frequency. PHYSICAL EXAM General - Alert and Oriented. HEENT - PERRL. EOMI. Throat is clear. No suspicious lesions noted. Neck - Supple and nontender. No cervical adenopathy. No suspicious lesions noted. Lungs - Clear to auscultation. Heart - Regular rate and rhythm. Abdomen - Soft and nondistended. No suspicious lesions noted. Extremities - FROM. No axillary adenopathy. Radial pulses are palpable. On the left arm in the antecubital area is a soft tissue mass that measures 6 cm. It is mobile. No ulceration. No evidence of infection. No sensory deficits in the area of the mass. Negative Tinel's sign at cubital tunnel left elbow. On the dorsal ulnar aspect mid left forearm is an erythematous lesion that measures 6 mm. Has regular borders. Has uniform coloration. Slightly raised in configuration. No ulceration. Lesion is nontender. Fingers are warm with good capillary refill. Decreased sensation to pinprick at left small finger and ring finger. Neuro - CN II-XII grossly intact. Decreased sensation to pinprick at left small fnger and left ring finger. Negative Tinel's sign at the left wrist. Psych - Normal mood and affect. ASSESSMENT 1. 6 cm recurrent soft tissue mass left antecubital area. 2. 6 mm erythematous lesion dorsal ulnar aspect mid left forearm. 3. Ulnar neuropathy left upper extremity. 4. Personal history of skin cancer. 5. Smoker. PLAN Will observe the lesion dorsal ulnar aspect mid left forearm. If it changes in the future, will need excision and send it to Pathology for analysis to rule out carcinoma. If carcinoma is present, then further excision will be done with skin graft or skin flap reconstruction. She has clinical evidence of ulnar neuropathy on the left. She has a large soft tissue mass left antecubital area which can extend toward the cubital tunnel and be contributory to her neuropathy. Will check a NCV and EMG to see where the nerve compression is located. Should check the neck as well because of recent left shoulder surgery. If the NCV and EMG are normal, then the symptomatology could be related to her shoulder surgery and should give it more time to subside. Will order a neck xray as well. If the NCV and EMG are positive, then would discuss surgical options at that time. To further elucidate the recurrent soft tissue mass in the left antecubital area, will order a CT or MRI to see if there is extension toward the cubital tunnel. She states she had a NCV in August 2017. Will get a copy of that study. Followup after her studies are completed. Encouraged the patient to stop smoking as it may have deleterious effects on wound healing. Assessment AND Plan Problems 1. Localized swelling, mass and lump, left upper limb R22.32 2. Neoplasm of unspecified behavior of bone, soft tissue, and skin D49.2 3. Ulnar neuropathy of left upper extremity G56.22 4. Personal history of skin cancer Z85.828 5. Smoker F17.200 Orders Orders: Coding Level of Care Code Off vis,est,level 4 Diagnoses Localized swelling, mass and lump, left upper limb R22.32 Neoplasm of unspecified behavior of bone, soft tissue, and skin D49.2 Ulnar neuropathy of left upper extremity G56.22 Personal history of skin cancer Z85.828 Smoker F17.200 05/26/18 4770 <Electronically signed by Librado Jo MD> Date Librado Jo MD Cosigner Signature: Date (if applicable) CC: Ricci Hawthorne DO ALLERGIES ALLERGIES DATE TYPE / CODE NAME / CODE REACTION SEVERITY SOURCE Drug dicyclomine Swelling Unknown [place] 9 Allergy/552746350( HCl/V125040264(R [facility]) XNORM) Hospital Repository Drug venlafaxine Nausea/Vom/Delaney Unknown [place] 9 Allergy/119451377( HCl/V721927234(R [facility] Community SNOMED CT) XNORM) Hospital Repository Drug Penicillins/F001 Rash Unknown [place] 9 Allergy/426215776( 509513(RXNORM) [facility]) Hospital Repository Drug diazepam/I810995 Other Unknown [place] 9 Allergy/305621826( 461(RXNORM) [facility]) Hospital Repository Drug prednisone/F0060 Other Unknown [place] 9 Allergy/827647248( 60556(RXNORM) [facility]) Hospital Repository Drug adhesive/T756052 Rash Unknown [place] 9 Allergy/188926095( 245(RXNORM) [facility]) Hospital Repository Drug clarithromycin/F Nausea/Vom/Delaney Unknown [place] 9 Allergy/735792350( 927648617(RXNORM rrhea [facility]) ) Hospital Repository Drug levofloxacin/F00 Nausea/Vom/Delaney Unknown [place] 9 Allergy/584941689( 4034702(RXNORM) [facility] SNOMED [facility]) Hospital Repository Drug doxycycline/F006 DIZZINESS AND SV [place] 9 Allergy/189140607( 602740(RXNORM) FACE NUMBNESS [facility] SNOMED CT) Hospital Repository Miscellaneous PLASTIC TAPE Rash Unknown [place] 9 Allergy/526094544( [facility] SNOMED CT) Hospital Repository ENCOUNTERS ENCOUNTERS ADMIT/DISCHARGE ACCOUNT NUMBER ADMITTING ENCOUNTER LOCATION SOURCE CLASS 12/21/2018/12/21/19 [id number] Ambulatory [address] ding:SDCRoom Repository : AC12 12/09/2018/12/09/19 [id number] Ambulatory BMSBuilding: [place] 19 BMS.[facility] Repository 11/18/2018 [id number] Ambulatory [facility] ding:CT Repository 09/08/2018 [id number] Ambulatory [facility] ding:PSN Repository 07/11/2018/07/11/20 [id number] Emergency BBuilding:ER [address] Repository 06/15/2018/06/16/20 [id number] Emergency BBuilding:ER [address] Repository 05/25/2018/05/25/20 [id number] Emergency BBuilding:ER [address] Repository 04/15/2018/04/15/20 [id number] Ambulatory BMSBuilding: Latanya 18 BMS.[facility] Repository PAYERS PAYERS ENCOUNTER GUARANTOR PAYER SUBSCRIBER SOURCE 12/21/2018 LIZ Sewell Primary Insurance:[facility] LIZ COLIN519 [facility] Number: [id number] [id number] Repository [address]Xpi: [phone]) Date:5500-44-44IY [phone] ([address] [address]VQ: 12/21/2018 Secondary NOT GIVENUNK [place] Insurance:SELF PAY [facility] Number: Effective Repository Date:2018-12-16 12/09/2018 LIZ L Primary Insurance:[facility] LIZ L [place] [id number] [facility] PLANPoly [facility] Number: [id number] [id number] Repository [address]Vmz: ([phone]) Date:2841-72-41ZB [phone] () [address] [place] [address]SE: 12/09/2018 Secondary NOT GIVENUNK [place] Insurance:SELF PAY [facility] Number: Effective Repository Date:2018-12-09 11/18/2018 LIZ L Primary Insurance:[facility] LIZ L [place] [id number] [facility] Number: [id number] [id number] Repository [address]Lnp: ([phone]) Date:8910-36-33XV [phone] () [address] [place] [address]RR: 11/18/2018 Secondary NOT GIVENUNK [place] Insurance:SELF PAY [facility] Number: Effective Repository Date:2018-11-05 09/08/2018 LIZ L Primary Insurance:[facility] LIZ L [place] [id number] [facility] Number: [id number] [id number] Repository [address]Wev: 330) Date:9837-65-78PX [phone] () [address] [place] [address]MX: 09/08/2018 Secondary NOT GIVENUNK [place] Insurance:SELF PAY [facility] Number: Effective Repository Date:2018 07/11/2018 LIZ L Primary [facility]Z L [facility] [id number] Repository [address] LOT Number: [address] [id number] [address] [place] [id number]@ Date:2018-07-11Tel: (330) SAM.COMTel: [phone] [phone] Name:XPO Box (HP)Tel: (000) (HP)Tel: ([phone]) [address], [place] [phone] (WP) [phone] (WP) [phone]: 06/15/2018 [facility]Z L [facility]: [facility] [id number] Repository [address] LOT Number: [address] [place] [address] [id number] [place] [address] [id number] Date:2018-06-15Tel: (330) SAM.COMTel: [phone] [phone] Name:X[address] Box (HP)Tel: (000) (HP)Tel: ([phone]) [address], [place] 000-[address] (WP) [phone] (WP) [phone]: 05/25/2018 LIZ L [facility]: [facility] [id number] Repository [address] Number: [address], [place] [id number] [address] [place] [address] [id number] Date:2018-05-25Tel: (330) SAM.COMTel: [phone] [phone] ( Name:XPO Box (HP)Tel: (000) (HP)Tel: [phone]) [address], [place] 000-[address] (WP) [phone] (WP) [phone]: 04/15/2018 LIZ Primary Insurance:[facility] LIZ COLIN519 [facility]: Critical access hospital Number: [id number] [id number] Repository [address]Avm: 330) Date:3779-70-69IK [phone] () [address] [place] [address]BR: 04/15/2018 Secondary NOT GIVENRADHA Pelaez Insurance:SELF PAY [facility] Number: Effective Repository Date:2018-03-10
== END 2018-12-21 14:51 | disposition home or self-care (01) ==
LOC: SDC 07:34 → AC 07:35
PROVIDERS: Family Provider Preventive Medicine Occupational Medicine; PCP Preventive Medicine Occupational Medicine; Referring Provider Surgery; Visit Provider Surgery
PROC: (CPT 22902; principal; 2018-12-21 09:00)
DX: L72.0 Epidermal cyst (principal); R22.32 Localized swelling, mass and lump, left upper limb; R22.2 Localized swelling, mass and lump, trunk; D49.2 Neoplasm of unspecified behavior of bone, soft tissue, and skin; F17.200 Nicotine dependence, unspecified, uncomplicated; Z85.828 Personal history of other malignant neoplasm of skin; Z79.899 Other long term (current) drug therapy; F41.9 Anxiety disorder, unspecified; F32.9 Major depressive disorder, single episode, unspecified; Z79.51 Long term (current) use of inhaled steroids; I10 Essential (primary) hypertension; J44.9 Chronic obstructive pulmonary disease, unspecified; K21.9 Gastro-esophageal reflux disease without esophagitis; M79.7 Fibromyalgia; M19.90 Unspecified osteoarthritis, unspecified site
CPT/HCPCS: 00400; 22902; 24071; 87070; 87075; 87102; 87205; 87206; 88304; 88305; J7120; J2405